=== PATIENT | male | born 1990 | race Caucasian/White ===

== ENCOUNTER 2020-08-23 01:03 | Emergency (ER) | payer OTHER, SELFPAY ==
--- NOTE | ~2020-08-23 | XR_ITS ---
EXAMINATION: XR HAND, RIGHT CLINICAL INFORMATION: Laceration COMPARISON: None TECHNIQUE: PA, lateral, and oblique views of the right hand. FINDINGS: No fracture or dislocation. Alignment is anatomic. Joint spaces are maintained. The soft tissues are unremarkable. No radiopaque foreign body at the site of laceration. There is a tiny radiopaque density in the second digit soft tissues near the middle phalanx. XR/XR hand RT min 3V IMPRESSION: No acute osseous abnormality. No radiopaque foreign body of the third digit. Tiny radiopaque density in the second digit soft tissues.
[2020-08-23 03:06] VITALS: BP 124/66; PULSE 102; RESP 16; TEMP 36.7; O2SAT 98; BMI 23.7
[2020-08-23] MEDS: Lidocaine HCl 2 % MPF 5 ML VIAL INFILTRATI ×2 (05:06→06:07)
--- NOTE | 2020-08-23 05:34 | ED.WOUNDLAC ---
HPI - Wound/Laceration General Chief Complaint: Wound/Laceration Stated Complaint: LAC ON FINGER Time Seen by Provider: 08/23/20 04:06 Source: patient Mode of arrival: ambulatory History of Present Illness HPI narrative: 29-year-old male who states that an injury walk dropped on the right middle finger, unknown last Tdap. Related Data Allergies Allergy/AdvReac Type Severity Reaction Status Date / Time No Known Allergies Allergy Verified 08/23/20 03:05 Review of Systems Review of Systems: Pertinent positives and negatives as stated in HPI 10 point review systems otherwise negative. FOR[facility]LY [facility] Past Medical History Source: nursing notes reviewed Social History Social History Advance Directives: No Physical Exam Vital Signs: Vital Signs: Last Vital Signs Temp 98.0 F 08/23/20 03:06 Pulse 102 H 08/23/20 03:06 Resp 16 08/23/20 03:06 BP 124/66 08/23/20 03:06 Pulse Ox 98 08/23/20 03:06 Body Mass Index 23.7 VITAL SIGNS: Reviewed. GENERAL: Well developed, well nourished, in no acute distress. HEAD: Normocephalic/atraumatic OROPHARYNX: no oral lesions noted, posterior pharynx clear NECK: Supple, no adenopathy LUNGS: Normal breath sounds. No adventitious sounds or accessory muscle use. SpO2<98> CARDIOVASCULAR: Regular rate and rhythm without noted murmurs ABDOMEN: Soft, non-tender, non-distended with bowel sounds. Right middle finger: 2 cm laceration at the palmar DIP with capillary refill less than 3 seconds and sensation intact. NEUROLOGIC: Alert and oriented x 4. Course Course Course Narrative: 29-year-old male with crush type injury to the right middle finger and review of x-rays negative for dislocation or fractures, patient received Tdap, and laceration was repaired with 4 interrupted sutures without complications. He was discharged in stable condition with instructions to follow-up for suture removal in 10 days. Procedures Laceration Laceration 1: Site: hand Side (If applicable): right Size (cm): 2.5 Description: linear Depth: simple, single layer Local Anesthetic: lidocaine 2% Amount of anesthesia used (mL): 10 Pre-repair: wound explored, irrigated extensively and deep structures intact Skin layer closed with: nylon Size (cm): 3-0 Number of sutures: 4 Technique: simple, interrupted Discharge Plan Discharge Clinical Impression: Laceration Patient Disposition: Home, Self-Care Instructions: Care For Your Stitches (ED), Finger Laceration (ED) Additional Instructions: 1. Tylenol 1000 mg, orally, every 6 hours as needed for pain control. Do not exceed 4000 mg within 24 hours. 2. Ibuprofen 400 mg, orally with milk or food, every 6 hours as needed for pain control. Take together with the Tylenol for added symptom control. 3. Follow-up with your primary care provider in 10 days for suture removal(4). Do not hesitate to return to the emergency department should you develop any worsening redness, swelling, discharge from your finger. Referrals: Physician,Unknown [Primary Care Provider] - 2 days Interventions: ED Discharge Assessment Last Done: 08/23/20 07:48 Discharge Date/Time: 08/23/20 07:48
[2020-08-23] MEDS: Diphth,Pertus(ACell),Tet Adult 0.5 ML SYRINGE IM (06:07)
--- NOTE | 2020-08-23 07:12 | PC.NURSE ---
report taken from cheri bloom at bedside to close lac, pt alert and oriented, no apparent distress.
== END 2020-08-23 07:48 | disposition home or self-care (01) ==
PROVIDERS: Emergency Provider Student in an Organized Health Care Education/Training Program
DX: S61.411A Laceration without foreign body of right hand, initial encounter (principal); M79.641 Pain in right hand; W26.9XXA Contact with unspecified sharp object(s), initial encounter; Y93.9 Activity, unspecified; Y92.9 Unspecified place or not applicable; Y99.9 Unspecified external cause status
CPT/HCPCS: 12001; 73130; 90471; 90715; 99283; 99284